=== PATIENT | female | born 1975 | race Caucasian/White ===

== ENCOUNTER 2019-05-30 05:23 | Day surgery (SDC) | payer MEDICAID, OTHER ==
[2019-05-30] VITALS (18 sets, daily range): BP systolic 93–126; BP diastolic 51–73; PULSE 52–82; RESP 18–28; Ht 157.5 cm; Wt 47.5 kg
[~2019-05-30] VITALS: Ht 157.5 cm; Wt 47.5 kg
[2019-05-30] MEDS ORDERED: LACTATED RINGER'S 1,000 ML IV SCH (06:30)
[2019-05-30] MEDS ORDERED: BUPIVACAINE 0.5%/EPI (SDV) 10 ML INJ ONE (06:55)
[2019-05-30] MEDS ORDERED: EPHEDrine 25 MG/5 ML SYG ONE (07:00)
[2019-05-30] MEDS ORDERED: CEFAZOLIN 2 GM/50 ML (PMX) 50 ML IVPB SCH (07:00)
[2019-05-30] MEDS ORDERED: LIDOCAINE 100 MG SYRINGE ONE (07:04)
[2019-05-30] MEDS ORDERED: PROPOFOL 20 ML ONE (07:04)
[2019-05-30] MEDS ORDERED: MIDAZOLAM 1 MG/ML 2 ML INJ ONE (07:05)
[2019-05-30] MEDS ORDERED: FENTAnyl 50 MCG/ML VIAL ONE ×2 (07:05→08:18)
[2019-05-30] MEDS ORDERED: ROCURONIUM 50 MG INJ ONE (07:10)
[2019-05-30] MEDS ORDERED: CEFAZOLIN 1 GM INJ ONE (07:10)
[2019-05-30] MEDS ORDERED: DEXAMETHASONE 4 MG/ML 5 ML INJ ONE (07:11)
[2019-05-30] MEDS ORDERED: hydrALAzine 20 MG INJ IV PRN ×2 (08:30)
[2019-05-30] MEDS ORDERED: FENTAnyl 50 MCG/ML VIAL IV PRN ×6 (08:30)
[2019-05-30] MEDS ORDERED: OXYCODONE/ACETAMINOPHEN (5/325) TAB PO PRN ×4 (08:30)
[2019-05-30] MEDS ORDERED: LABETALOL HCL 20MG INJ IV PRN ×2 (08:30)
[2019-05-30] MEDS ORDERED: HYDROmorphONE 1 MG/5 ML IV SYRINGE IV PRN ×6 (08:30)
[2019-05-30] MEDS ORDERED: MEPERIDINE 25 MG INJ IV PRN ×2 (08:30)
[2019-05-30] MEDS ORDERED: ONDANSETRON 4 MG INJ IV PRN ×2 (08:30)
[2019-05-30] MEDS ORDERED: EPHEDrine 25 MG/5 ML SYG IV PRN ×2 (08:30)
[2019-05-30] MEDS ORDERED: ALBUTEROL 0.083% (NEB) 2.5 MG/3 ML AMP HHN PRN ×2 (08:30)
[2019-05-30] MEDS ORDERED: IPRATROPIUM (NEB) 0.5 MG/2.5 ML AMP HHN PRN ×2 (08:30)
[2019-05-30] MEDS ORDERED: DIPHENHYDRAMINE 50 MG INJ IV PRN ×2 (08:30)
== END 2019-05-30 10:35 | disposition home or self-care (01) ==
LOC: SDS 05:23
PROVIDERS: ATTEND Specialist
DX: Z30.2 Encounter for sterilization (principal)
CPT/HCPCS: 58661; 71045; 84703; 93005; J0690; J1100; J2001; J2175; J2250; J2405; J3010; Z7512; Z7610; 88302